=== PATIENT | male | born 1965 | race Caucasian/White ===

== ENCOUNTER 2020-11-10 16:28 | Emergency (ER) | payer SELFPAY ==
[2020-11-10 18:50] LABS: CORONAVIRUS COVID-19 NAA POSITIVE (NEGATIVE)
--- NOTE | 2020-11-10 20:33 | EDM.PDOC ---
ED HPI GENERAL MEDICAL PROBLEM - General Chief Complaint: General Stated Complaint: POSSIBLE COVID PATIENT Time Seen by Provider: 11/10/20 20:00 Source of Information: Reports: Patient History Limitations: Reports: No Limitations - History of Present Illness INITIAL COMMENTS - FREE TEXT/NARRATIVE: ED with c/o sinus pressure and congestion. Denies difficulty breathing. No fever or chills, No loss of taste or smell. Has been using Muccinex for congestion. No vomiting or diarrhea. States he is here with [employer] from [place]. 2 others from [facility] ill with cold like smptoms and were tested earlier this week and were negative for COVID. Planning to leave for home tomorrow. Headache Pain Score (Numeric/FACES): 4 - Related Data Allergies Allergy/AdvReac Type Severity Reaction Status Date / Time No Known Allergies Allergy Verified 11/10/20 18:59 Home Meds: Home Meds . [No Known Home Meds] 11/10/20 [History] Past Medical History - Past Health History Medical/Surgical History: Denies Medical/Surgical History Social & Family History - Tobacco Use Tobacco Use Status *Q: Never Tobacco User Second Hand Smoke Exposure: No - Caffeine Use Caffeine Use: Reports: Soda - Alcohol Use Date of Last Drink: 11/03/20 - Recreational Drug Use Recreational Drug Use: No ED ROS GENERAL - Review of Systems Review Of Systems: Comprehensive ROS is negative, except as noted in HPI. ED EXAM, GENERAL - Physical Exam Exam: See Below Exam Limited By: No Limitations General Appearance: Alert, Mild Distress Eye Exam: Bilateral Eye: Conjunctival Injection, EOMI Ears: Normal External Exam Nose: Normal Inspection Throat/Mouth: Normal Inspection Head: Atraumatic Neck: Full Range of Motion Respiratory/Chest: No Respiratory Distress, Lungs Clear, Normal Breath Sounds Cardiovascular: Regular Rate, Rhythm GI/Abdominal: Soft Extremities: Normal Inspection Neurological: Alert, Oriented, CN II-XII Intact, Normal Cognition, Normal Gait Skin Exam: Warm, Dry, Intact, Normal Color Course - Orders/Labs/Meds Labs: Laboratory Tests 11/10/20 Range/Units 18:06 Influenza Type A RNA Negative (NEGATIVE) Influenza Type B RNA Negative (NEGATIVE) SARS-CoV-2 RNA (RAMESH) Positive H (NEGATIVE) Departure - Departure Time of Disposition: 20:28 Disposition: Home, Self-Care 01 Condition: Good Clinical Impression: COVID - Discharge Information *PRESCRIPTION DRUG MONITORING PROGRAM REVIEWED*: No *COPY OF PRESCRIPTION DRUG MONITORING REPORT IN PATIENT JESSICA: No Instructions: COVID-19 Frequently Asked Questions, 10 Things You Can Do to Manage Your COVID-19 Symptoms at Home - CDC, Prevent the Spread of COVID-19 if You Are Sick - [facility] Forms: ED Department Discharge Additional Instructions: Encourage fluids muccinex or similar product per label instructions for congestion symptoms tylenol 500mg every 4 hours as needed for fever/ discomfort quarantine 14 days from onset of symptoms urgent follow up if difficulty breathing repeated vomiting and unable to to lerate liquids notify close contacts and they should also limit their exposure to others Sepsis Event Note (ED) - Evaluation Sepsis Screening Result: No Definite Risk
== END 2020-11-10 20:40 | disposition home or self-care (01) ==
LOC: DL.ED 16:28
DX: U07.1 COVID-19 (principal)
CPT/HCPCS: 0240U; 99283